=== PATIENT | female | born 1945 | race Caucasian/White ===

== ENCOUNTER → 2019-01-15 | Outpatient (CLI) | payer MEDICARE ==
[~2019-01-15] MED LIST: ACTOPLUS MET 11 EAC1 PO; AMARYL2 MG PO; AMLODIPINE BESYL5 MG PO; CLONAZEPAM0.5 MG PO; DILTIAZEM 24HR300 M2 PO; GLUCOPHAGE1000 MG PO; LANOXIN250 MCG PO; LANSOPRAZOLE30 MG PO; LANTUS100 UNIT/1 SC; LEVEMIR100 UNIT/1 SQ; LISINOPRIL10 MG PO; METFORMIN HCL1000 MG PO; NOVOLOG100 UNITS1 SQ; OMEPRAZOLE40 MG PO; PIOGLITAZONE15 MG PO; REQUIP0.5 MG PO; REQUIP1 MG PO; VITAMIN B-121000 MCG PO; VITAMIN D1000 UNIT PO; VITAMIN E PO; WELLBUTRIN75 MG PO; ZETIA10 MG PO
--- NOTE | 2019-01-15 14:44 | Diagnostic Imaging Report ---
EXAMINATION: RIBS UNILAT W/CXR INDICATION: Left rib pain COMPARISON: Rib series of 10/26/2016 FINDINGS: LINES/TUBES:None LUNGS:The lungs are well-inflated. No focal consolidation or pulmonary edema. PLEURA:No pleural effusion or pneumothorax. MEDIASTINUM:The cardiomediastinal silhouette appears normal in size and shape. BONES/SOFT TISSUES:No displaced rib fractures. ABDOMEN:No free air under the diaphragm. IMPRESSION: No displaced rib fracture. No focal pneumonia or pulmonary edema. Signed by: Natacha Alvarado MD on 01/15/2019 2:41 PM
== END ==
LOC: RAD 13:51
PROVIDERS: ATTEND Internal Medicine
DX: R07.81 Pleurodynia (principal)
CPT/HCPCS: 71101